=== PATIENT | female | born 1985 | race Caucasian/White ===

== ENCOUNTER 2023-02-07 16:06 | Emergency (ER) | payer BC ==
[2023-02-07] MEDS ORDERED: Sodium Chloride 0.9% 10 ML Syringe FLUSH PRN (16:16)
[2023-02-07] MEDS ORDERED: Sodium Chloride 0.9% 500 ML IV STA (16:16)
[2023-02-07] MEDS: Ketorolac 30 MG/ML SDV IVPUSH ONE (16:23)
[2023-02-07] MEDS: Sodium Chloride 0.9% 1,000 ML IV ONE (16:24)
[2023-02-07] MEDS: Ondansetron 4 MG/2 ML SDV IVPUSH ONE (16:24)
[2023-02-07 16:33] LABS: BASOPHILS ABSOLUTE AUTO 0.08 10^3/uL (0.00-0.50); BASOPHILS PERCENT AUTO 0.7 % (0-1); EOSINOPHILS ABSOLUTE AUTO 0.43 10^3/uL (0.00-1.50); EOSINOPHILS PERCENT AUTO 3.9 % (0-6); HEMATOCRIT 38.7 % (37.0-47.0); HEMOGLOBIN 13.1 g/dL (12.0-16.0); IMMATURE GRAN ABSOLUTE AUTO 0.02 10^3/uL (0.00-0.49); IMMATURE GRAN PERCENT AUTO 0.2 % (0.0-4.9); LYMPHOCYTES ABSOLUTE AUTO 4.59 10^3/uL (0.60-5.00); LYMPHOCYTES PERCENT AUTO 41.5 % (24-44); MEAN CORPUSCULAR HEMOGLOBIN 29.8 pg (27.0-32.0); MEAN CORPUSCULAR HGB CONC 33.9 g/dL (32.0-36.0); MONOCYTES ABSOLUTE AUTO 0.71 10^3/uL (0.00-1.50); MONOCYTES PERCENT AUTO 6.4 % (0-10); NEUTROPHILS ABSOLUTE AUTO 5.22 x10^3/uL (1.80-8.00); NEUTROPHILS PERCENT AUTO 47.3 % (41-71); PLATELET COUNT,PLT 263 10^3/uL (150-400); WHITE BLOOD CELL COUNT,WBC 11.1 10^3/uL (4.0-11.0)
[2023-02-07 16:50] LABS: APPEARANCE,URINE CLEAR (CLEAR); BILIRUBIN,URINE NEGATIVE (NEGATIVE); COLOR,URINE YELLOW (YELLOW); GLUCOSE,URINE NEGATIVE (NEGATIVE); KETONES,URINE NEGATIVE (NEGATIVE); LEUKOCYTE ESTERASE,URINE NEGATIVE (NEGATIVE); OCCULT BLOOD,URINE MODERATE (NEGATIVE); PH,URINE 5.5 (4.5-8.0); PROTEIN,URINE NEGATIVE (NEGATIVE); UROBILINOGEN,URINE 0.2 EU/dL (0.2-1.0)
[2023-02-07 16:50] LABS: ALBUMIN 3.8 g/dL (3.4-5.0); BILIRUBIN TOTAL 0.3 mg/dL (0.0-1.0); CALCIUM 8.5 mg/dL (8.4-10.1); CREATININE 0.6 mg/dL (0.6-1.0); EST CRCL DRUG DOSING (CG) 120.18 mL/min; POTASSIUM,K 3.8 mEq/L (3.5-5.0)
[2023-02-07 16:51] LABS: NITRITE,URINE NEGATIVE (NEGATIVE)
[2023-02-07 16:52] LABS: BACTERIA,URINE FEW /HPF (NOT SEEN); RBC,URINE >100 /HPF (0-5); SQUAMOUS EPITHELIAL CELLS,UR MODERATE /HPF (NOT SEEN); WBC,URINE 0-5 /HPF (0-5)
[2023-02-07] MEDS: Tamsulosin 0.4 MG Cap.ER PO SCH (18:48)
== END 2023-02-07 18:56 | disposition home or self-care (01) ==
LOC: CC.ED 16:06
DX: N13.2 Hydronephrosis with renal and ureteral calculous obstruction (principal); Z88.0 Allergy status to penicillin
CPT/HCPCS: 36415; 74176; 80053; 81001; 81025; 82150; 83690; 85025; 96374; 96375; 99284; 99284-25; A9270-GY; J1885; J2405; J7030

== ENCOUNTER 2023-12-15 22:33 | Emergency (ER) | payer BC ==
[2023-12-15] MEDS: Take Home: Acetaminophen/HYDROcodone 325-5 MG, 2 Tab Pack PO ONE (22:55)
[2023-12-15] MEDS: Take Home: Clindamycin HCl 150 MG Cap, 6 Cap Pack PO ONE (22:55)
== END 2023-12-15 23:02 | disposition home or self-care (01) ==
LOC: CC.ED 22:33
DX: K04.7 Periapical abscess without sinus (principal); Z88.0 Allergy status to penicillin
CPT/HCPCS: 99282; A9270; 99283